=== PATIENT | male | born 1985 | race Caucasian/White ===

== ENCOUNTER → 2017-01-24 | Outpatient (CLI) | payer BC ==
--- NOTE | 2017-01-24 08:56 | DIAGNOSTIC IMAGING REPORT ---
LEFT FOOT MIN 3 VIEWS ROUTINE, RIGHT FOOT MIN 3 VIEWS ROUTINE CLINICAL HISTORY: 31 years-old Male presenting with chronic heel pain. TECHNIQUE: Frontal, oblique, and lateral views of the left and right feet were obtained. COMPARISON: Comparison made to plain radiographs of the right foot. FINDINGS: Left foot: No acute fracture or malalignment. Accessory navicular noted. Prominent enthesophyte at the insertion of the Achilles tendon. No significant degenerative change elsewhere. Regional soft tissues normal. Right foot: No acute fracture or malalignment. Os peroneum noted. Again, prominent enthesophyte at the insertion of the Achilles tendon. No significant degenerative change elsewhere. Regional soft tissues normal. IMPRESSION: 1. No acute osseous injury of the left or right feet. 2. Prominent enthesophytes insertions of the Achilles tendons bilaterally. Electronically signed by: Jens Madison M.D. 01/24/2017 8:54 AM Dictated Date/Time: 01/24/2017 8:52 AM
== END | disposition home or self-care (01) ==
LOC: C.RAD1850 08:32
PROVIDERS: ATTEND Family Medicine
DX: M25.579 Pain in unspecified ankle and joints of unspecified foot (principal)